=== PATIENT | male | born 1970 | race African-American/Black ===

== ENCOUNTER 2020-08-13 14:45 | Emergency (ER) | payer MEDICAID ==
[~2020-08-13] VITALS: Ht 182.9 cm; Wt 75.0 kg
[2020-08-13] MEDS ORDERED: ACETAMINOPHEN 325MG TABLET PO ONE (16:15)
[2020-08-13] MEDS ORDERED: IBUP-2029 MT (16:44)
[2020-08-13] MEDS ORDERED: BACITRACIN ZINC OINT UDPKT TOP ONE (16:45)
[2020-08-13 17:20] VITALS: BP 138/101
== END 2020-08-13 17:21 | disposition home or self-care (01) ==
LOC: ER 14:45
DX: S93.401A Sprain of unspecified ligament of right ankle, initial encounter (principal); V23.4XXA Motorcycle driver injured in collision with car, pick-up truck or van in traffic accident, initial encounter; Y93.89 Activity, other specified; Y92.89 Other specified places as the place of occurrence of the external cause; Y99.8 Other external cause status
CPT/HCPCS: 73610; 99283